=== PATIENT | female | born 1965 | race Caucasian/White ===

== ENCOUNTER 2018-07-10 11:16 | Inpatient (IN) ==
--- NOTE | 2018-07-10 12:29 | ED ---
HPI General Chief Complaint: Psychiatric Symptoms Stated Complaint: Spych Screen Time Seen by Provider: 07/10/18 11:35 Source: patient Mode of arrival: ambulatory Limitations: no limitations History of Present Illness HPI Narrative: 52-year-old female presents to the emergency department voluntarily for psychiatric evaluation. Says she "cannot get bad thoughts out of her head" for many months. Says she wants to end her life. Says "it is not worth it anymore." She reports suicidal ideation. She has thought about stabbing herself in the heart with a knife, crashing her car into a tree and other thoughts. Has history of suicidal attempt by overdosing on pills. Denies homicidal ideation. Denies auditory or visual hallucinations. Denies illicit drug use or alcohol use. Reports taking his Xanax from a friend the other day. Reports tobacco use. States that if she drinks alcohol she "knows she would do it if she was drunk;" referring to committing suicide if she was drunk. Symptoms are aggravated with current life situation of not having any money, cannot get a job, and finding out that her daughter is going to [employer] for 5 years. No known relieving factors. Symptoms are moderate to severe in severity. Onset unknown. Duration chronic. Reports chest pain that has been constant for 1 month. Says it feels like a knife is stuck in her chest. Denies any associated shortness of breath. Denies abdominal pain, nausea, vomiting, change in urine or stool. History of CHF and takes Lasix. Has a primary care provider but does not know the name. Allergies to Compazine and Zoloft. Has no other medical complaints. No other modifying factors or associated signs and symptoms. Related Data Home Medications Medication Instructions Recorded Confirmed Seroquel 25 mg PO HS 07/10/18 07/10/18 clonazepam 1 mg PO BID PRN 07/10/18 07/10/18 methimazole 10 mg PO TID 07/11/18 07/11/18 Previous Rx's Medication Instructions Recorded atorvastatin 20 mg PO DAILY #30 tab 07/13/18 dicyclomine 20 mg PO QID 7 Days #28 tab 07/13/18 lorazepam 1 mg PO BID 7 Days #14 tab 07/13/18 mirtazapine 15 mg PO HS 15 Days #15 tab 07/13/18 Allergies Allergy/AdvReac Type Severity Reaction Status Date / Time sertraline [From Zoloft] Allergy Severe Hives Verified 07/10/18 12:00 prochlorperazine AdvReac Severe Seizures Verified 07/10/18 12:00 [From Compazine] Review of Systems ROS: all other systems reviewed are negative PMFSH History History Provided By: Patient Medical History Medical History Anxiety (Acute) Depression (Acute) CHF (congestive heart failure) (Acute) Chest pain (Acute) Post hysterectomy menopause (Acute) Thyroid disorder (Acute) Surgical History Surgical History History of appendectomy (Acute) Family History Family History Other Diabetes mellitus Social History Social History Substance History: No History of Abuse Second Hand Smoke Exposure: Yes Smoking Status: Current every day smoker Tobacco Type: Cigarettes How Often Do You Have a Drink Containing Alcohol: Never Exam Narrative Exam Narrative: GENERAL: Well-nourished, well-developed female patient , in no acute distress SKIN: Warm and dry. HEAD: Atraumatic. Normocephalic. EYES: Pupils equal and round. ENT: Mucosa pink and moist. NECK: Supple. Trachea midline. CARDIOVASCULAR: Regular rate and rhythm. No murmur appreciated. RESPIRATORY: No accessory muscle use. Clear to auscultation. Breath sounds equal bilaterally. GASTROINTESTINAL: Abdomen soft, non-tender, nondistended. Hepatic and splenic margins not palpable. Bowel sounds are active 4 quadrants. MUSCULOSKELETAL: No obvious deformities. No clubbing. No cyanosis. No edema. NEUROLOGICAL: Awake and alert. Oriented 3. No obvious cranial nerve deficits. Motor grossly within normal limits. Normal speech. Moves all extremities. 5/5 strength to all extremities. PSYCHIATRIC: No delusional thought processes. No hallucinations. Course Initial Documented Vital Signs Temperature 97.8 F 07/10/18 11:19 Pulse Rate 117 H 07/10/18 11:19 Respiratory Rate 20 07/10/18 11:19 Blood Pressure 166/96 H 07/10/18 11:19 Pulse Oximetry 98 07/10/18 11:19 Last Documented Vital Signs Temperature 97.5 F L 07/13/18 06:00 Pulse Rate 79 07/13/18 06:00 Respiratory Rate 16 07/13/18 06:00 Blood Pressure 164/94 H 07/13/18 06:00 Pulse Oximetry 97 07/12/18 17:00 Medical Decision Making NADEGE Attestation NADEGE supervised visit: Yes Attestation: I was present with the advanced practitioner during the management of this patient. I discussed the case with the advanced practitioner and agree with the findings and plan as documented in their note except as noted below. 52yF presenting with depression and suicidal ideation. The patient reports recently losing her job, finding out that her daughter is going to [employer], and is concerned about losing her house. She says that for the past several months she's had severe depression and has not wanted to get out of bed, eat, or interact with anyone. She reports repetitive thoughts about wanting to kill herself by slitting her wrists, stabbing herself in the chest, and driving her car into a tree. She has not recently tried to harm herself but has a history of psych admission for intentional overdose when she was a teenager. Denies homicidal ideation, says that she is not hallucinating but tells me "I think I saw a UFO the other night". Says that she ran out of her clonazepam and thyroid medication 1 week ago. Denies alcohol or drug use. No acute distress NCAT RRR Lungs clear to auscultation bilaterally Abdomen soft and non-tender No lower extremity edema A&Ox3 Cooperative with exam, flattened affect, withdrawn, speech clear/ not pressured or tangential, does not appear to be internally preoccupied A/P: 52yF presenting with depression and suicidal ideation I signed a [place] Act for this patient as I believe she presents significant risk of harming herself Medical clearance (patient has a history of CHF and thyroid disease) Psych eval [facility] Narrative Medical decision making narrative: Patient presents voluntarily. Patient has positive suicidal ideation and multiple plans. I feel the patient is a threat to herself and others and will initiate a [place] act. Physical examination and vital signs are essentially unremarkable. Patient has no medical complaints to report. Psych screen has been ordered. If the laboratory results are unremarkable, the patient will be medically cleared for psychiatric evaluation and disposition. Patient is complaining of chest pain that has been constant for 1 month. No associated shortness of breath. Patient will be moved into a medical bed and placed on a cardiopulmonary monitor. Labs, cardiac enzymes, chest x-ray, EKG ordered. Psych screen ordered. 1417: CBC unremarkable. Urinalysis without signs of infection. Positive for benzodiazepines. Chest x-ray with no acute findings 1527: Troponin less than 0.02. TSH 0.005. Free T4 1.25. Patient medically cleared for psych evaluation. 1541: EKG w/NSR; no ST elevation or depression. Medical Screen Exam Complete: Yes Emergency Medical Condition: Yes Differential Diagnosis Differential Diagnosis: Depression, anxiety, adjustment disorder, chest pain, NV , ACS, medical clearance for psychiatric evaluation Lab Data Result diagrams: 07/10/18 13:35 07/12/18 08:42 Lab Results 07/10/18 07/10/18 07/10/18 Range/Units 13:35 13:35 13:35 WBC 9.8 (4.0-11.0) th/mm3 RBC 4.83 (4.00-5.30) mil/mm3 Hgb 14.5 (11.6-15.3) gm/dL Hct 43.1 (35.0-46.0) % MCV 89.1 (80.0-100.0) fL MCH 30.1 (27.0-34.0) pg MCHC 33.7 (32.0-36.0) % RDW 14.9 (11.6-17.2) % Plt Count 296 (150-450) th/mm3 MPV 8.4 (7.0-11.0) fL Neut % (Auto) 68.9 (16.0-70.0) % Lymph % (Auto) 22.9 (9.0-44.0) % [place] % (Auto) 5.6 (0.0-8.0) % Eos % (Auto) 2.1 (0.0-4.0) % Baso % (Auto) 0.5 (0.0-2.0) % Neut # (Auto) 6.8 (1.8-7.7) th/mm3 Lymph # (Auto) 2.2 (1.0-4.8) th/mm3 [place] # (Auto) 0.6 (0.0-0.9) th/mm3 Eos # (Auto) 0.2 (0.0-0.4) th/mm3 Baso # (Auto) 0.0 (0.0-0.2) th/mm3 WBC Differential . Differential Comment Auto diff final Sodium 140 (136-145) meq/L Potassium 3.9 (3.5-5.1) meq/L Chloride 107 (98-107) meq/L Carbon Dioxide 26.4 (21.0-32.0) meq/L Anion Gap 7 (5-15) meq/L BUN 18 (7-18) mg/dL Creatinine 0.78 (0.50-1.00) mg/dL Estimated GFR 77 L (>89) mL/min Random Glucose 117 H (74-106) mg/dL Hemoglobin A1c (4.3-6.0) % Calcium 8.8 (8.5-10.1) mg/dL Total Bilirubin 0.7 (0.2-1.0) mg/dL AST 12 L (15-37) U/L ALT 19 (10-53) U/L Alkaline Phosphatase 101 (45-117) U/L Troponin I Less than 0.02 L (0.02-0.05) ng/mL Total Protein 7.7 (6.4-8.2) g/dL Albumin 3.6 (3.4-5.0) g/dL Triglycerides (42-150) mg/dL Cholesterol (120-200) mg/dL LDL Cholesterol, Calc (0-99) mg/dL HDL Cholesterol (40.0-60.0) mg/dL Cholesterol/HDL Ratio Ratio TSH Less than 0.005 L (0.358-3.740) uIU/mL Free T4 (0.76-1.46) ng/dL Beta HCG, Qual (0-5) mIU/mL Urine Color (Yellw/Straw) Urine Clarity (Clear) Urine pH (5.0-8.5) Ur Specific [place] (1.002-1.035) Urine Protein (Neg-Trace) mg/dL Urine Glucose (UA) (Negative) mg/dL Urine Ketones (Negative) mg/dL Urine Occult Blood (Negative) Urine Nitrate (Negative) Urine Bilirubin (Negative) Urine Urobilinogen (Less than 2) mg/dL Ur Leukocyte Esterase (Negative) Urine RBC (0-3) /hpf Urine WBC (0-5) /hpf Ur Squamous Epith Cells (0-5) /hpf Urine Mucus (Occasional) /lpf Micro UA Comment Urine Culture Comments Salicylates 1.7 L (2.8-20.0) mg/dL Urine Opiates Screen (Neg) Acetaminophen Less than 2.0 L (10.0-30.0) mcg/mL Ur Barbiturates Screen (Neg) Ur Amphetamines Screen (Neg) U Benzodiazepines Scrn (Neg) Urine Cocaine Screen (Neg) U Cannabinoids Screen (Neg) Serum Alcohol Less than 3 (0-5) mg/dL 07/10/18 07/10/18 07/10/18 Range/Units 13:35 13:40 13:40 WBC (4.0-11.0) th/mm3 RBC (4.00-5.30) mil/mm3 Hgb (11.6-15.3) gm/dL Hct (35.0-46.0) % MCV (80.0-100.0) fL MCH (27.0-34.0) pg MCHC (32.0-36.0) % RDW (11.6-17.2) % Plt Count (150-450) th/mm3 MPV (7.0-11.0) fL Neut % (Auto) (16.0-70.0) % Lymph % (Auto) (9.0-44.0) % [place] % (Auto) (0.0-8.0) % Eos % (Auto) (0.0-4.0) % Baso % (Auto) (0.0-2.0) % Neut # (Auto) (1.8-7.7) th/mm3 Lymph # (Auto) (1.0-4.8) th/mm3 [place] # (Auto) (0.0-0.9) th/mm3 Eos # (Auto) (0.0-0.4) th/mm3 Baso # (Auto) (0.0-0.2) th/mm3 WBC Differential Differential Comment Sodium (136-145) meq/L Potassium (3.5-5.1) meq/L Chloride (98-107) meq/L Carbon Dioxide (21.0-32.0) meq/L Anion Gap (5-15) meq/L BUN (7-18) mg/dL Creatinine (0.50-1.00) mg/dL Estimated GFR (>89) mL/min Random Glucose (74-106) mg/dL Hemoglobin A1c (4.3-6.0) % Calcium (8.5-10.1) mg/dL Total Bilirubin (0.2-1.0) mg/dL AST (15-37) U/L ALT (10-53) U/L Alkaline Phosphatase (45-117) U/L Troponin I (0.02-0.05) ng/mL Total Protein (6.4-8.2) g/dL Albumin (3.4-5.0) g/dL Triglycerides (42-150) mg/dL Cholesterol (120-200) mg/dL LDL Cholesterol, Calc (0-99) mg/dL HDL Cholesterol (40.0-60.0) mg/dL Cholesterol/HDL Ratio Ratio TSH (0.358-3.740) uIU/mL Free T4 1.25 (0.76-1.46) ng/dL Beta HCG, Qual (0-5) mIU/mL Urine Color Yellow (Yellw/Straw) Urine Clarity Hazy H (Clear) Urine pH 5.0 (5.0-8.5) Ur Specific [place] 1.020 (1.002-1.035) Urine Protein Negative (Neg-Trace) mg/dL Urine Glucose (UA) Negative (Negative) mg/dL Urine Ketones Trace H (Negative) mg/dL Urine Occult Blood Negative (Negative) Urine Nitrate Negative (Negative) Urine Bilirubin Negative (Negative) Urine Urobilinogen Less than 2 (Less than 2) mg/dL Ur Leukocyte Esterase Negative (Negative) Urine RBC 1 (0-3) /hpf Urine WBC 1 (0-5) /hpf Ur Squamous Epith Cells 1 (0-5) /hpf Urine Mucus Few H (Occasional) /lpf Micro UA Comment Culture not ind Urine Culture Comments Culture not ind Salicylates (2.8-20.0) mg/dL Urine Opiates Screen Neg (Neg) Acetaminophen (10.0-30.0) mcg/mL Ur Barbiturates Screen Neg (Neg) Ur Amphetamines Screen Neg (Neg) U Benzodiazepines Scrn Pos H (Neg) Urine Cocaine Screen Neg (Neg) U Cannabinoids Screen Neg (Neg) Serum Alcohol (0-5) mg/dL 07/12/18 07/12/18 07/12/18 Range/Units 08:42 08:42 08:42 WBC (4.0-11.0) th/mm3 RBC (4.00-5.30) mil/mm3 Hgb (11.6-15.3) gm/dL Hct (35.0-46.0) % MCV (80.0-100.0) fL MCH (27.0-34.0) pg MCHC (32.0-36.0) % RDW (11.6-17.2) % Plt Count (150-450) th/mm3 MPV (7.0-11.0) fL Neut % (Auto) (16.0-70.0) % Lymph % (Auto) (9.0-44.0) % [place] % (Auto) (0.0-8.0) % Eos % (Auto) (0.0-4.0) % Baso % (Auto) (0.0-2.0) % Neut # (Auto) (1.8-7.7) th/mm3 Lymph # (Auto) (1.0-4.8) th/mm3 [place] # (Auto) (0.0-0.9) th/mm3 Eos # (Auto) (0.0-0.4) th/mm3 Baso # (Auto) (0.0-0.2) th/mm3 WBC Differential Differential Comment Sodium 139 (136-145) meq/L Potassium 3.9 (3.5-5.1) meq/L Chloride 106 (98-107) meq/L Carbon Dioxide 25.3 (21.0-32.0) meq/L Anion Gap 8 (5-15) meq/L BUN 16 (7-18) mg/dL Creatinine 0.83 (0.50-1.00) mg/dL Estimated GFR 72 L (>89) mL/min Random Glucose 154 H (74-106) mg/dL Hemoglobin A1c 5.4 (4.3-6.0) % Calcium 9.0 (8.5-10.1) mg/dL Total Bilirubin (0.2-1.0) mg/dL AST (15-37) U/L ALT (10-53) U/L Alkaline Phosphatase (45-117) U/L Troponin I (0.02-0.05) ng/mL Total Protein (6.4-8.2) g/dL Albumin (3.4-5.0) g/dL Triglycerides 153 H (42-150) mg/dL Cholesterol 207 H (120-200) mg/dL LDL Cholesterol, Calc 134 H (0-99) mg/dL HDL Cholesterol 42.3 (40.0-60.0) mg/dL Cholesterol/HDL Ratio 4.89 Ratio TSH (0.358-3.740) uIU/mL Free T4 (0.76-1.46) ng/dL Beta HCG, Qual 2.7 Cancelled (0-5) mIU/mL Urine Color (Yellw/Straw) Urine Clarity (Clear) Urine pH (5.0-8.5) Ur Specific [place] (1.002-1.035) Urine Protein (Neg-Trace) mg/dL Urine Glucose (UA) (Negative) mg/dL Urine Ketones (Negative) mg/dL Urine Occult Blood (Negative) Urine Nitrate (Negative) Urine Bilirubin (Negative) Urine Urobilinogen (Less than 2) mg/dL Ur Leukocyte Esterase (Negative) Urine RBC (0-3) /hpf Urine WBC (0-5) /hpf Ur Squamous Epith Cells (0-5) /hpf Urine Mucus (Occasional) /lpf Micro UA Comment Urine Culture Comments Salicylates (2.8-20.0) mg/dL Urine Opiates Screen (Neg) Acetaminophen (10.0-30.0) mcg/mL Ur Barbiturates Screen (Neg) Ur Amphetamines Screen (Neg) U Benzodiazepines Scrn (Neg) Urine Cocaine Screen (Neg) U Cannabinoids Screen (Neg) Serum Alcohol (0-5) mg/dL Imaging Data Radiologist's impression: Chest X-Ray 07/10/18 12:11 CONCLUSION: No acute cardiopulmonary abnormality is identified. Abdomen/Pelvis CT 07/12/18 00:00 CONCLUSION: 1. No acute CT abnormality in the abdomen or pelvis. 2. Diastasis recti with very small fat-containing periumbilical hernia. 3. Subcentimeter bilateral hypodense cystic renal lesions which are too small to fully characterize. ECG Data Attestation: I personally reviewed and interpreted this ECG as follows: Interpretation: Rate: 95 BPM Rhythm: Sinus [place]: Normal Intervals: Normal intervals, no blocks, QTc 400 ms Q waves: None T waves: Upright, no inversions ST segments: No elevations or depressions Impression: Non-specific EKG, no previous EKG available for comparison. Discharge Plan Discharge Disposition Patient Disposition: 30 Still Patient Discharge Condition Condition: Fair Discharge Order Discharge Orders: Discharge Order (Routine); Ordered 07/13/18 Ordered By: Tony Almgauer Discharge Details Anticipated Discharge Date: 07/13/18 Physicians Team ED Provider: Jessica Smith ED Midlevel Provider: Hazel King Primary Care Provider: UNKNOWN, Attending Provider: Tony Almaguer Other Providers: Tony Almaguer ; Utilizer,[facility] ; Sedrick Diez Status ED Status: Left Department Discharge Information Discharge Date/Time: 07/11/18 14:42
--- NOTE | 2018-07-10 12:57 | XR ---
EXAM DATE: 07/10/2018 12:36 PM EDT AGE/SEX: 52 years / Female INDICATIONS: Midline chest pain. CLINICAL DATA: This is the patient's initial encounter. Patient reports that signs and symptoms have been present for 2 months and indicates a pain score of 4/10. MEDICAL/SURGICAL HISTORY: Congestive heart failure. None. COMPARISON: No prior exams available for comparison. FINDINGS: Portable AP view of the chest demonstrates a normal-sized cardiac silhouette. No effusion, consolidat ion, or pneumothorax is identified. The bones and soft tissues demonstrate no acute finding. Lungs ar e underinflated. CONCLUSION: No acute cardiopulmonary abnormality is identified. Electronically signed by: Tommie Stallings MD 07/10/2018 12:56 PM EDT
[2018-07-10 13:52] LABS: Baso % (Auto) 0.5 % (0.0-2.0); Eos # (Auto) 0.2 th/mm3 (0.0-0.4); Eos % (Auto) 2.1 % (0.0-4.0); Hematocrit 43.1 % (35.0-46.0); Hemoglobin 14.5 gm/dL (11.6-15.3); Lymph # (Auto) 2.2 th/mm3 (1.0-4.8); Lymph % (Auto) 22.9 % (9.0-44.0); Mean Corpuscular HGB Conc 33.7 % (32.0-36.0); Mean Corpuscular Hemoglobin 30.1 pg (27.0-34.0); Mean Corpuscular Volume 89.1 fL (80.0-100.0); Mean Platelet Volume 8.4 fL (7.0-11.0); Mono # (Auto) 0.6 th/mm3 (0.0-0.9); Mono % (Auto) 5.6 % (0.0-8.0); Neut # (Auto) 6.8 th/mm3 (1.8-7.7); Neut % (Auto) 68.9 % (16.0-70.0); Platelet Count 296 th/mm3 (150-450); Red Blood Count 4.83 mil/mm3 (4.00-5.30); Red Cell Distribution Width 14.9 % (11.6-17.2); White Blood Count 9.8 th/mm3 (4.0-11.0)
[2018-07-10 13:56] LABS: Bilirubin,Urine Negative (Negative); Clarity,Urine Hazy (Clear); Color,Urine Yellow (Yellw/Straw); Glucose,Urine (UA) Negative (Negative); Leukocyte Esterase,Urine Negative (Negative); Mucus,Urine Few /lpf (Occasional); Nitrite,Urine Negative (Negative); Squamous Epithelial Cell,Urine 1 /hpf (0-5)
[2018-07-10 14:00] LABS: Amphetamine Screen,Urine Neg (Neg); Barbiturate Screen,Urine Neg (Neg); Cannabinoid Screen,Urine Neg (Neg); Cocaine Screen,Urine Neg (Neg)
[2018-07-10 14:01] LABS: Opiate Screen,Urine Neg (Neg)
[2018-07-10 14:15] LABS: Alanine Aminotransferase 19 U/L (10-53); Albumin 3.6 g/dL (3.4-5.0); Anion Gap 7 meq/L (5-15); Aspartate Aminotransferase 12 U/L (15-37); Blood Urea Nitrogen 18 mg/dL (7-18); Calcium 8.8 mg/dL (8.5-10.1); Carbon Dioxide 26.4 meq/L (21.0-32.0); Chloride 107 meq/L (98-107); Glomerular Filtration Rate 77 mL/min (>89); Glucose,Random 117 mg/dL (74-106); Potassium 3.9 meq/L (3.5-5.1); Sodium 140 meq/L (136-145)
[2018-07-10 14:25] LABS: Alkaline Phosphatase 101 U/L (45-117); Total Protein 7.7 g/dL (6.4-8.2)
[2018-07-10] MEDS ORDERED: LORazepam 1 MG Tablet PO ONE (17:03)
[2018-07-10] MEDS ORDERED: QUEtiapine 25 MG Tablet PO ONE (21:00)
[2018-07-10] MEDS ORDERED: clonazePAM 1 MG Tablet PO ONE (21:00)
[2018-07-11] MEDS ORDERED: Aluminum/Magnesium/Simethacone Susp 30 ML UDC PO PRN (08:26)
[2018-07-11] MEDS ORDERED: Bisacodyl 10 MG Supp RECTAL PRN (08:26)
[2018-07-11] MEDS ORDERED: clonazePAM 0.5 MG Tablet PO PRN (09:00)
[2018-07-11] MEDS: Senna/Docusate Sodium 8.6/50 MG Tablet PO SCH ×3 (09:06→21:06)
--- NOTE | 2018-07-11 13:54 | P.HPPSY ---
Provisional Diagnosis Admission Date: July 11, 2018 09:58 [place] I.: Adjustment disorder with depressed mood, R/O major depressive disorder, single episode, without psychosis, history of anxiety [place] II.: Cluster B traits Competence Certification of Person's Competence To Provide Express and Informed Consent I have personally examined Mary Sharp, a person being served at [facility] on, July 11, 2018 1340. Express and informed consent means consent voluntarily given in writing, by a competent person, after sufficient explanation and disclosure of the subject matter involved to enable the person to make a knowing and willful decision without any element of force, fraud, deceit, duress, or other form of constraint or coercion. This person is 18 years of age or older, is not now known to be incompetent to consent to treatment with a guardian advocate, and does not have a health care surrogate or proxy currently making medical treatment decisions. I have found this person to be one of the following: [] Competent to provide express and informed consent, as defined above, for voluntary admission to this facility and is competent to provide express and informed consent for treatment. He/she has the consistent capacity to make well reasoned, willful, and knowing decisions concerning his or her medical or mental health treatment. The person fully and consistently understands the purpose of the admission for examination/placement and is fully capable of personally exercising all rights assured [place] [] Incompetent to provide express and informed consent to voluntary admission, and this is incompetent to provide express and informed consent to treatment. The person must be transferred to involuntary status and a petition for a guardian advocate filed with the Circuit Court. [] Refusing to provide express and informed consent to voluntary admission but is competent to provide express and informed consent for treatment. The person must be discharged or transferred to involuntary status. Form shall be completed within 24 hours of a person's arrival at the receiving facility and filed in the clinical record of each person: 1. Admitted on a voluntary basis 2. Permitted to provide express and informed consent to his/her own treatment 3. Allowed to transfer from involuntary to voluntary status 4. Prior to permitting a person to consent to his or her own treatment after having been previously found incompetent to consent to treatment. History of Present Illness Capacity: Has capacity History of Present Illness: The patient is 52-year-old woman, , domiciled with her daughter in [facility], unemployed at the moment, with a psychiatric history of anxiety and depression, 1 remote psychiatric admission, a suicidal attempt, she is on quetiapine 25 mg twice daily, clonazepam 1 mg twice daily, prescribed by PCP, medical history hypothyroidism, who presents to the emergency department voluntarily for psychiatric evaluation, even though the patient was posteriorly [place] acted by ER physician due to suicidal ideation. Says she "cannot get bad thoughts out of her head" for many months. Says she wants to end her life. Says "it is not worth it anymore." She reports suicidal ideation, no specific plan, even though she says that she wants to get treatment for this. She has thought about stabbing herself in the heart with a knife, crashing her car into a tree and other thoughts. States that if she drinks alcohol she "knows she would do it if she was drunk;" referring to committing suicide if she was drunk. Symptoms are aggravated with current life situation of not having any money, cannot get a job, and finding out that her daughter is going to senior living for 5 years. She also reports that she has a son who is a heroine addict in [place]. She states that she is going to lose the best friend who is her daughter. The patient has initially stated to the nurses that she was positive for benzodiazepines because she was taking Xanax from her daughter, even though to me she tells me that the reason she is positive for benzodiazepine is because she is taking clonazepam prescribed by PCP. During the evaluation the patient seems to be quite tearful, vulnerable, to be quite mood is regulated. He denies the use of illegal drugs, occasional alcohol PPHx:psychiatric history of anxiety and depression, 1 remote psychiatric admission, a suicidal attempt, she is on quetiapine 25 mg twice daily, clonazepam 1 mg twice daily PMHx: Hypothyroidism Family Hx: She denies family psychiatric he substance Hx: She denies illegal drugs, alcohol occasionally Social Hx: Patient was born and raised in [place], she has recently moved month ago [facility] from [place], she is , has 3 kids, she lives with her daughter, unemployed. - Inpatient Certification I certify that the inpatient services were ordered in accordance with Medicare regulations governing the order. This includes certification that hospital inpatient services are reasonable and necessary and in the case of services not specified as inpatient-only under 42 CFR 419.22(n), that they are appropriately provided as inpatient services in accordance to with the 2-midnight benchmark under 43 CFR 412.3(e) I certify that inpatient psychiatric hospital services are medically necessary. Evaluation and treatment and/or diagnostic testing are expected to improve the patient's condition. The patient needs on a daily basis, active treatment furnished directly by or requiring the supervision of inpatient psychiatric facility personnel. Estimated Total Length of Stay (Days): 7 Plans for Post Hospital Care: Home Review of Systems Constitutional: Denies anorexia, Denies body ache(s), Denies chills, Denies daytime sleepiness, Denies excessive sweating, Denies fatigue, Denies fever(s), Denies headache(s), Denies increased appetite, Denies lack of energy, Denies malaise, Denies night sweats, Denies weakness, Denies weight gain, Denies weight loss, Denies other Eyes: Denies blind spots, Denies blurry vision, Denies bulging eyes, Denies change in vision, Denies double vision, Denies discharge, Denies dry eyes, Denies floaters, Denies irritation, Denies itchy eyes, Denies loss of vision, Denies pain, Denies requires corrective lenses, Denies sensitivity to light, Denies other Ears, Nose, Mouth, and Throat: Denies abnormal hearing, Denies bleeding gums, Denies bad breath, Denies change in voice, Denies dental pain, Denies difficulty swallowing, Denies dizziness, Denies dry mouth, Denies ear discharge , Denies ear pain, Denies facial pain, Denies headache(s), Denies hearing loss, Denies hoarseness, Denies lip swelling, Denies nosebleed, Denies mouth lesions, Denies mouth pain, Denies nasal congestion, Denies nasal discharge, Denies nasal obstruction, Denies nasal trauma, Denies neck lump, Denies neck pain, Denies nose pain, Denies pain with swallowing, Denies poor balance, Denies post nasal drip, Denies ringing in the ears, Denies sinus pain, Denies sinus pressure , Denies sore throat, Denies throat swelling, Denies tongue swelling, Denies other Cardiovascular: Denies chest pain, Denies chest pain at rest, Denies chest pain with activity, Denies excessive sweating, Denies fainting, Denies fast heart rate, Denies foot swelling, Denies generalized swelling, Denies irregular heart rhythm, Denies leg pain with activity, Denies leg sores, Denies leg swelling, Denies lightheadedness, Denies radiating jaw, neck or arm pain, Denies rapid, pounding, or irregular heartbeat, Denies shortness of breath, Denies shortness of breath with activity, Denies shortness of breath when lying down, Denies shortness of breath causing sudden awakening, Denies slow heart rate, Denies other Respiratory: Denies change in phlegm color, Denies chest congestion, Denies cough, Denies coughing up blood, Denies excessive phlegm production, Denies pain on inspiration, Denies pain with cough, Denies shortness of breath, Denies shortness of breath with activity, Denies snoring, Denies stridor, Denies wheezing, Denies other Gastrointestinal: Denies abdominal pain, Denies belching, Denies black, tarry stools, Denies bloating, Denies bright, red blood in stools, Denies change in bowel habits, Denies constant urge to pass stool, Denies change in stools, Denies coffee ground vomit, Denies constipation, Denies cramping, Denies difficulty swallowing, Denies excessive passing of gas, Denies feeling full early, Denies heartburn, Denies incontinent of stools, Denies loose stools, Denies nausea, Denies pain with swallowing, Denies vomiting, Denies vomiting blood, Denies other Genitourinary: Denies abnormal periods, Denies abnormal vaginal bleeding, Denies absent period, Denies bleeding between periods, Denies blood in urine, Denies difficulty starting urination, Denies difficulty urinating, Denies dribbling after urination, Denies frequent nighttime urination, Denies genital itching, Denies genital lesions, Denies heavy periods, Denies hot flashes, Denies light periods, Denies nipple discharge, Denies painful intercourse, Denies painful periods, Denies painful urination, Denies pelvic pain, Denies prolapse symptoms, Denies sexual problems, Denies side pain, Denies urinary incontinence, Denies urinary urgency, Denies vaginal discharge, Denies vaginal dryness, Denies vaginal odor, Denies vaginal itching, Denies other Musculoskeletal: Denies abnormal walking, Denies back pain, Denies body aches, Denies decreased muscle mass, Denies deformity, Denies joint pain, Denies joint swelling, Denies limited joint movement, Denies loss of height, Denies muscle cramps, Denies muscle weakness, Denies neck pain, Denies numbness, Denies radiating pain into limb, Denies stiffness, Denies tingling, Denies other Skin/Breast: Denies acne, Denies bleeding lesions, Denies boil, Denies breast swelling, Denies breast skin changes, Denies breast pain, Denies breast lump, Denies change in breast shape, Denies change in hair, Denies change in skin color, Denies changing lesions, Denies dry skin, Denies excessive hair growth, Denies hair loss, Denies itching, Denies lesions, Denies nail changes, Denies new lesions, Denies nipple discharge, Denies non-healing lesions, Denies redness , Denies sensitivity to light, Denies rash, Denies skin pain, Denies skin ulcer , Denies sores, Denies stretch dunn, Denies unusual bruising, Denies wounds, Denies yellowing of the skin, Denies other Neurologic: Denies abnormal hearing, Denies abnormal movements, Denies abnormal speech, Denies abnormal walking, Denies behavioral changes, Denies burning sensations, Denies confusion, Denies dizziness, Denies fainting, Denies frequent falls, Denies headache(s), Denies lack of coordination, Denies localized weakness, Denies loss of vision, Denies memory loss, Denies numbness, Denies other visual disturbances, Denies radiating pain, Denies restless legs, Denies convulsions, Denies seizure-like activity, Denies sensory deficit, Denies tingling, Denies tingling/numbness/burning sensations, Denies tremor(s), Denies unsteadiness, Denies weakness, Denies other Psychiatric: Reports depression, Reports hopelessness, Reports lack of enjoyment , Reports thoughts of hurting/killing yourself PMFSH - History History Provided By: Patient - Medical History Medical History: Medical History (Last Updated 07/10/18 @ 12:32 by Jose Tejeda RN) CHF (congestive heart failure) Chest pain Depression Hypothyroidism - Tobacco History Second Hand Smoke Exposure: No Tobacco Use In Past 30 Days: Yes Smoking Status: Current every day smoker Tobacco Type: Cigarettes - Alcohol History How Often Do You Have a Drink Containing Alcohol: Never - Substance Use History Substance History: No History of Abuse - Immunization History Tetanus Immunization: Unsure Hx Influenza Vaccine This Season: No Medications and Allergies Active Medications: Active Medications Acetaminophen (Tylenol) 650 mg PO Q4H PRN PRN Reason: Pain 1-5 or Temp >101F Al Hydrox/Mg Hydrox/Simethicone (Mag-Al Plus Susp Liq) 30 ml PO Q6H PRN PRN Reason: DYSPEPSIA Al Hydroxide/Mg Hydroxide (Milk Of Magnesia Liq) 30 ml PO Q12H PRN PRN Reason: Mild Constipation Bisacodyl (Dulcolax Supp) 10 mg RECTAL DAILY PRN PRN Reason: SEVERE CONSITIPATION Clonazepam (Klonopin) 0.5 mg PO BID PRN PRN Reason: ANXIETY Last Admin: 07/11/18 09:08 Dose: 0.5 mg Diphenhydramine HCl (Benadryl) 50 mg PO Q6H PRN PRN Reason: For mild anxiety and/or EPS Lactulose (Lactulose Liq) 30 ml PO DAILY PRN PRN Reason: SEVERE CONSITIPATION Nicotine (Habitrol 14 Mg Patch.24 Hr) 1 patch T-DERMAL DAILY [facility] Last Admin: 07/11/18 09:06 Dose: 1 patch Patch Removal (Remove Old Patch) 1 each T-DERMAL DAILY [facility] Quetiapine Fumarate (Seroquel) 25 mg PO [facility] Senna/Docusate Sodium (Jerilyn-Colace) 1 tab PO BID [facility] Last Admin: 07/11/18 09:06 Dose: Not Given Sennosides (Senokot) 17.2 mg PO Q12H PRN PRN Reason: Moderate Constipation Allergies Allergy/AdvReac Type Severity Reaction Status Date / Time sertraline [From Zoloft] Allergy Severe Hives Verified 07/10/18 12:00 prochlorperazine AdvReac Severe Seizures Verified 07/10/18 12:00 [From Compazine] Home Medications Medication Instructions Recorded Confirmed Type Seroquel 25 mg PO 07/10/18 07/10/18 History clonazepam 1 mg PO BID PRN 07/10/18 07/10/18 History Results - Labs CBC & Chem 7: 07/10/18 13:35 07/10/18 13:35 Labs: Laboratory Results - last 24 hr 07/10/18 07/10/18 07/10/18 13:35 13:35 13:35 WBC 9.8 RBC 4.83 Hgb 14.5 Hct 43.1 MCV 89.1 MCH 30.1 MCHC 33.7 RDW 14.9 Plt Count 296 MPV 8.4 Neut % (Auto) 68.9 Lymph % (Auto) 22.9 [place] % (Auto) 5.6 Eos % (Auto) 2.1 Baso % (Auto) 0.5 Neut # (Auto) 6.8 Lymph # (Auto) 2.2 [place] # (Auto) 0.6 Eos # (Auto) 0.2 Baso # (Auto) 0.0 WBC Differential . Differential Comment Auto diff final Sodium 140 Potassium 3.9 Chloride 107 Carbon Dioxide 26.4 Anion Gap 7 BUN 18 Creatinine 0.78 Estimated GFR 77 L Random Glucose 117 H Calcium 8.8 Total Bilirubin 0.7 AST 12 L ALT 19 Alkaline Phosphatase 101 Troponin I Less than 0.02 L Total Protein 7.7 Albumin 3.6 TSH Less than 0.005 L Free T4 Urine Color Urine Clarity Urine pH Ur Specific [place] Urine Protein Urine Glucose (UA) Urine Ketones Urine Occult Blood Urine Nitrate Urine Bilirubin Urine Urobilinogen Ur Leukocyte Esterase Urine RBC Urine WBC Ur Squamous Epith Cells Urine Mucus Micro UA Comment Urine Culture Comments Salicylates 1.7 L Urine Opiates Screen Acetaminophen Less than 2.0 L Ur Barbiturates Screen Ur Amphetamines Screen U Benzodiazepines Scrn Urine Cocaine Screen U Cannabinoids Screen Serum Alcohol Less than 3 07/10/18 07/10/18 07/10/18 13:35 13:40 13:40 WBC RBC Hgb Hct MCV MCH MCHC RDW Plt Count MPV Neut % (Auto) Lymph % (Auto) [place] % (Auto) Eos % (Auto) Baso % (Auto) Neut # (Auto) Lymph # (Auto) [place] # (Auto) Eos # (Auto) Baso # (Auto) WBC Differential Differential Comment Sodium Potassium Chloride Carbon Dioxide Anion Gap BUN Creatinine Estimated GFR Random Glucose Calcium Total Bilirubin AST ALT Alkaline Phosphatase Troponin I Total Protein Albumin TSH Free T4 1.25 Urine Color Yellow Urine Clarity Hazy H Urine pH 5.0 Ur Specific [place] 1.020 Urine Protein Negative Urine Glucose (UA) Negative Urine Ketones Trace H Urine Occult Blood Negative Urine Nitrate Negative Urine Bilirubin Negative Urine Urobilinogen Less than 2 Ur Leukocyte Esterase Negative Urine RBC 1 Urine WBC 1 Ur Squamous Epith Cells 1 Urine Mucus Few H Micro UA Comment Culture not ind Urine Culture Comments Culture not ind Salicylates Urine Opiates Screen Neg Acetaminophen Ur Barbiturates Screen Neg Ur Amphetamines Screen Neg U Benzodiazepines Scrn Pos H Urine Cocaine Screen Neg U Cannabinoids Screen Neg Serum Alcohol Exam Vital signs: Vital Signs 07/10/18 18:04 07/11/18 05:54 Temperature 98.7 F 98.1 F Pulse Rate 87 81 Respiratory Rate 18 Blood Pressure 144/71 H 153/73 H Pulse Oximetry 97 100 Intake & Output 07/10/18 07/11/18 07/11/18 18:59 06:59 18:59 Weight 95.254 kg - Constitutional no acute distress - Routine HEENT Exam Head: Present: normocephalic Eye: Present: EOMI ENT: Present: mucous membranes moist Mental Status Examination Appearance: Appropriate Consciousness: Alert Orientation: x4 Motor Activity: Normal gait Speech: Unremarkable Language: Adequate Fund of Knowledge: Adequate Attention and Concentration: Adequate Memory: Unremarkable Mood: Sad Affect: Sad Thought Process & Associations: Intact Thought Content: Appropriate Hallucination Type: None Delusion Type: None Suicidal Ideation: No Suicidal Plan: No Suicidal Intention: No Homicidal Ideation: No Homicidal Plan: No Homicidal Intention: No Insight: Fair Judgment: Impulsive Assessment and Plan - Assessment (1) Acute adjustment disorder with depressed mood Code(s): F43.21 - Adjustment disorder with depressed mood Status: Acute - Plan Plan: Estimated LOS: [] days On psychiatric evaluation today the patient presents with symptoms of depression and suicidal ideation for the last month, the patient has walked into the ER asking for help due to persistent suicidal ideation in the context of multiple psychosocial stressors. The patient reports that in the last months she has been having persistent suicidal ideation with a plan of stabbing herself or overdosing, at the same time the patient reports anhedonia, helplessness, hopelessness, generalized pessimism, lack of sleep and appetite. She has a psychiatric history of depression, anxiety, psychiatric hospitalizations in the past, suicidal attempts, and for this reason at this moment given her presentation she has an elevated risk of danger to self, she need psychiatric admission for stabilization and safety. I will start Celexa 10 mg for depression, clonazepam 0.5 mg twice daily and also Seroquel 25 mg twice daily, as the patient was taking. Breath supportive psychotherapy provided. Transfer the patient to 2600 unit Justification for Continued Inpatient Stay: Patient is for psychiatry admission
--- NOTE | 2018-07-11 17:06 | ECG ---
Date Performed: 07/10/2018 Time Performed: 15:38:17 PTAGE: 52 years EKG: Sinus rhythm NORMAL ECG NO PREVIOUS TRACING DOCTOR: Tyler Diaz Interpretating Date/Time 07/11/2018 17:05:22
[2018-07-11] MEDS ORDERED: QUEtiapine 25 MG Tablet PO SCH (21:00)
[2018-07-11] MEDS ORDERED: Haloperidol Inj 5 MG/ML Ampul IV.PUSH PRN (21:50)
[2018-07-11] MEDS: LORazepam 1 MG Tablet PO PRN (22:00)
[2018-07-12] MEDS: Acetaminophen 325 MG Tablet PO PRN (06:23)
[2018-07-12] MEDS: LORazepam 1 MG Tablet PO PRN (06:26)
[2018-07-12] MEDS: Senna/Docusate Sodium 8.6/50 MG Tablet PO SCH (09:42)
--- NOTE | 2018-07-12 09:43 | P.CONPSY ---
Provisional Diagnosis Admission Date: July 11, 2018 09:58 [place] I.: 1. Adjustment disorder with depressed mood Rule out major depressive episode 2. History of anxiety [place] II.: 1. Some cluster B personality traits History of Present Illness Service: Psychiatry Consult date: 07/12/18 Requesting Physician: Nicolas Tucker Reason for Consult: Second opinion for involuntary psychiatric hospitalization Primary Care Provider: UNKNOWN History of Present Illness: Ms. Sharp is a 52-year-old female with a reported history of depression and anxiety who presented to the ED voluntarily for psychiatric evaluation. She endorsed suicidal ideation to the ED provider and was placed under the [facility] act. She was seen by Dr. Tucker for an H&P. Reviewing the electronic medical record, I see no previous psychiatric contact within our system. Patient seen and examined with nurse. Chart reviewed. Case discussed with nursing staff. No behavioral issues noted overnight. On my examination today, the patient reports several psychosocial stressors including critical illness and father, unemployment and daughter having legal problems that may result in significant period of incarceration for daughter. Patient tells me that in the setting of these stressors she has become increasingly depressed and "I was just feeling hopeless. I feel like a failure as a mother." She admits to entertaining suicidal thoughts prior to coming into the hospital. She articulates a belief that she has completed her life tasks of employment and raising a family and so felt that she had no ongoing reason to live. She denies any suicidal ideation, intent or plan presently. Mood remains depressed. I can elicit no hypomanic or manic symptoms presently, nor does the patient have a history of same. She denies any audiovisual hallucinations. I can elicit no delusional beliefs. She does exhibit some cluster B personality traits. Remainder of the psychiatric ROS is negative. The patient complains of abdominal spasms in left upper quadrant, subacute/chronic. Otherwise no physical complaints. Past psychiatric history: The patient reports a history of depression and anxiety. She reports that she went to a free clinic for psychiatric care when she was residing in [facility] but is not connected in this area. Patient denies any history of psychiatric admissions. She denies any history of suicide attempts. She denies any history of nonsuicidal self-injurious behavior. She denies any history of violence. Family history: Patient denies a family history of mental illness or suicide. She reports that both her father and son have substance use issues, alcohol and heroin respectively. Chemical dependency history: The patient denies any abuse of drugs or alcohol. Social history: The patient was raised in a family and moved around a lot. She left the [place] area and was residing in [facility] before moving up to [facility], where she now lives with her daughter. Unfortunately, her daughter has fallen into some legal trouble, and the patient is fearful of becoming homeless. She notes that her son has severe substance use issues and resides in [place], and she is fearful that she will receive a call that he has by overdose. She is high school educated. She recently lost her job. She is . She denies any history. Denies any legal history. No reported access to guns or firearms. She is of the [employer]. Past medical history: Includes a history of hyperthyroidism on methimazole, CHF and seasonal allergies. Medications: Methimazole 10 mg daily, Seroquel 25 mg at bedtime and Klonopin 1 mg twice daily. These medications were confirmed by nurse with pharmacy. I also reviewed [facility] report, although I see no history of controlled substance prescribing for the patient in the database. Review of Systems All other systems reviewed negative except as stated in HPI [facility] - History History Provided By: Patient - Medical History Medical History: Medical History (Last Reviewed 07/11/18 @ 15:57 by Gianna Dominguez RN) Post hysterectomy menopause (Acute) Anxiety CHF (congestive heart failure) Chest pain Depression Hypothyroidism - Surgical History Surgical History: Surgical History (Last Reviewed 07/11/18 @ 15:57 by Gianna Dominguez RN) History of appendectomy - Tobacco History Second Hand Smoke Exposure: Yes Tobacco Use In Past 30 Days: Yes Smoking Status: Current every day smoker Tobacco Type: Cigarettes - Alcohol History How Often Do You Have a Drink Containing Alcohol: Never - Substance Use History Substance History: No History of Abuse - Immunization History Tetanus Immunization: >5 Years Hx Influenza Vaccine This Season: Yes Medications and Allergies Active Medications: Active Medications Acetaminophen (Tylenol) 650 mg PO Q4H PRN PRN Reason: Pain 1-5 or Temp >101F Last Admin: 07/12/18 06:23 Dose: 650 mg Al Hydrox/Mg Hydrox/Simethicone (Mag-Al Plus Susp Liq) 30 ml PO Q6H PRN PRN Reason: DYSPEPSIA Al Hydroxide/Mg Hydroxide (Milk Of Magnesia Liq) 30 ml PO Q12H PRN PRN Reason: Mild Constipation Bisacodyl (Dulcolax Supp) 10 mg RECTAL DAILY PRN PRN Reason: SEVERE CONSITIPATION Clonazepam (Klonopin) 0.5 mg PO BID PRN PRN Reason: ANXIETY Last Admin: 07/11/18 09:08 Dose: 0.5 mg Diphenhydramine HCl (Benadryl) 50 mg PO Q6H PRN PRN Reason: For mild anxiety and/or EPS Flumazenil (Romazecon Inj) 0.2 mg IV.PUSH Q1M PRN PRN Reason: OVERSEDATION Lactulose (Lactulose Liq) 30 ml PO DAILY PRN PRN Reason: SEVERE CONSITIPATION Lorazepam (Ativan) 1 mg PO Q4H PRN PRN Reason: for CIWA 8-10 Last Admin: 07/12/18 06:26 Dose: 1 mg Lorazepam (Ativan) 2 mg PO Q2H PRN PRN Reason: for CIWA 11-14 Lorazepam (Ativan Inj) 2 mg IV.PUSH Q2H PRN PRN Reason: for CIWA 11-14 Lorazepam (Ativan Inj) 2 mg IV.PUSH Q1H PRN PRN Reason: for CIWA 15-20 Lorazepam (Ativan Inj) 1 mg IV.PUSH Q4H PRN PRN Reason: for CIWA 8-10 Lorazepam (Ativan Inj) 2 mg IV.PUSH Q15M PRN PRN Reason: for CIWA > 20 Nicotine (Habitrol 14 Mg Patch.24 Hr) 1 patch T-DERMAL DAILY [facility] Last Admin: 07/12/18 09:42 Dose: Not Given Patch Removal (Remove Old Patch) 1 each T-DERMAL DAILY [facility] Last Admin: 07/12/18 09:42 Dose: Not Given Quetiapine Fumarate (Seroquel) 25 mg PO HS [facility] Senna/Docusate Sodium (Jerilyn-Colace) 1 tab PO BID [facility] Last Admin: 07/12/18 09:42 Dose: Not Given Sennosides (Senokot) 17.2 mg PO Q12H PRN PRN Reason: Moderate Constipation Allergies Allergy/AdvReac Type Severity Reaction Status Date / Time sertraline [From Zoloft] Allergy Severe Hives Verified 07/10/18 12:00 prochlorperazine AdvReac Severe Seizures Verified 07/10/18 12:00 [From Compazine] Home Medications Medication Instructions Recorded Confirmed Type Seroquel 25 mg PO HS 07/10/18 07/10/18 History clonazepam 1 mg PO BID PRN 07/10/18 07/10/18 History methimazole 10 mg PO TID 07/11/18 07/11/18 History Exam Vital signs: Vital Signs 07/11/18 13:56 07/11/18 14:20 07/11/18 17:00 Temperature 98.6 F 98.4 F 98.1 F Pulse Rate 97 H 100 H 88 Respiratory Rate 16 18 Blood Pressure 166/67 H 144/70 H 140/72 Pulse Oximetry 99 98 07/12/18 05:42 Temperature 97.9 F Pulse Rate 80 Respiratory Rate Blood Pressure 134/70 Pulse Oximetry 95 Intake & Output 07/11/18 07/12/18 07/12/18 18:59 06:59 18:59 Weight 98.3 kg Other: Weight On Admission 98.3 kg Narrative: Physical examination completed by ED provider. On my examination today, the patient appears to be in no acute physical distress. No motor abnormalities noted. No signs of intoxication or withdrawal noted. Labs and vital signs reviewed: Laboratory Tests 07/10/18 07/10/18 07/10/18 13:35 13:35 13:35 WBC 9.8 Hgb 14.5 Plt Count 296 Sodium 140 Potassium 3.9 Chloride 107 Carbon Dioxide 26.4 BUN 18 Creatinine 0.78 Estimated GFR 77 L AST 12 L ALT 19 Alkaline Phosphatase 101 Troponin I Less than 0.02 L TSH Less than 0.005 L Free T4 1.25 U Benzodiazepines Scrn Serum Alcohol Less than 3 07/10/18 13:40 WBC Hgb Plt Count Sodium Potassium Chloride Carbon Dioxide BUN Creatinine Estimated GFR AST ALT Alkaline Phosphatase Troponin I TSH Free T4 U Benzodiazepines Scrn Pos H Serum Alcohol Urinalysis results reviewed. Impressions Chest X-Ray 07/10/18 12:11 CONCLUSION: No acute cardiopulmonary abnormality is identified. EKG read as normal sinus rhythm. QTc within normal limits. Mental Status Examination Appearance: Appropriate Consciousness: Alert Orientation: x4 Motor Activity: Normal gait Speech: Unremarkable Language: Adequate Fund of Knowledge: Adequate Attention and Concentration: Adequate Memory: Unremarkable Mood: Sad Affect: Appropriate Thought Process & Associations: Intact, Logical, Linear Thought Content: Appropriate Hallucination Type: None Delusion Type: None Suicidal Ideation: No (Unclear whether patient is reliable to contract for safety) Suicidal Plan: No Suicidal Intention: No Homicidal Ideation: No Homicidal Plan: No Homicidal Intention: No Insight: Fair Judgment: Impulsive Assessment and Plan - Assessment (1) Acute adjustment disorder with depressed mood Code(s): F43.21 - Adjustment disorder with depressed mood Status: Acute - Plan Plan: Patient is agreeable to remaining on the inpatient psychiatric unit for observation and stabilization on a voluntary basis. I magistrate judge that she is capacitated to do so. Patient does not meet criteria for involuntary psychiatric hospitalization. Voluntary status. Lengthy discussion with patient regarding conditions of voluntary status including right of release. Patient found Ativan she was given last night more helpful than the Klonopin that she had reportedly been previously prescribed. She would like to switch from Klonopin to Ativan. Discontinue Klonopin and initiate Ativan 1 mg twice daily. [facility] report reviewed. Discontinue Seroquel and replaced with Remeron 15 mg at bedtime in hopes that this will help with both mood and sleep. Resume methimazole. R/B/A for medication changes discussed with patient. Beta hCG. Hospitalist consult regarding patient's physical complaints. Vitals every shift. Counselor to see. Disposition planning. Estimated length of stay : 3-5 days. Justification for Continued Inpatient Stay: Medication changes. Monitoring for impairment in safety. Risk for decompensation in less restrictive environment. Discharge Planning: Pending stabilization Request Healthcare Surrogate/Guardian Advocate?: No
[2018-07-12 10:50] LABS: Carbon Dioxide 25.3 meq/L (21.0-32.0); Potassium 3.9 meq/L (3.5-5.1)
[2018-07-12 10:56] LABS: Chol/HDL Ratio 4.89 Ratio; HDL Cholesterol 42.3 mg/dL (40.0-60.0)
[2018-07-12] MEDS: LORazepam 1 MG Tablet PO SCH ×2 (11:09→20:23)
[2018-07-12] MEDS ORDERED: Diatrizoate Meglum/Diatrizoate Sod Liq 9 ML UDC PO ONE (12:30)
--- NOTE | 2018-07-12 15:15 | P.CON ---
History of Present Illness Service: Hospitalist Consult date: 07/12/18 Requesting Physician: Tony Almaguer Reason for Consult: Medical management Primary Care Provider: UNKNOWN Chief Complaint: Abdominal cramping History of Present Illness: This is a 52-year-old female with a past medical history significant for depression, anxiety, thyroid disorder and CHF who presented voluntarily for psychiatric evaluation secondary to suicidal thoughts. Patient has since been admitted to the inpatient psychiatry unit and hospitalist services have been consulted for medical management specifically evaluation of left upper quadrant cramping. Patient seen and examined. Patient states that she has had intermittent left upper quadrant cramping that she describes as a "charley horse " for the past month. Patient states that the episodes have been increasing in frequency. She states the episodes seem to be brought on when bearing down to defecate but also can occur without any specific activity. She reports history of constipation but states that she had a bowel movement this morning. Any black/bloody/tarry stools. She denies any associated fever or chills. She denies any associated chest pain or shortness of breath. She denies any nausea or vomiting. She denies any urinary difficulties. Patient states that the episodes will last for a few minutes before subsiding on their own. She denies any history of abdominal surgery. She has never had an EGD or colonoscopy. Review of Systems All other systems reviewed negative except as stated in [facility] - History History Provided By: Patient - Medical History Medical History: Medical History (Last Updated 07/12/18 @ 15:13 by Le Murcia) Anxiety (Acute) Depression (Acute) CHF (congestive heart failure) (Acute) Chest pain Post hysterectomy menopause Thyroid disorder - Surgical History Surgical History: Surgical History (Last Updated 07/12/18 @ 15:07 by Le Murcia) History of appendectomy (Acute) - Family History Family History: Family History (Last Updated 07/12/18 @ 15:07 by Le Murcia) Other Diabetes mellitus - Tobacco History Second Hand Smoke Exposure: Yes Tobacco Use In Past 30 Days: Yes Smoking Status: Current every day smoker Tobacco Type: Cigarettes - Alcohol History How Often Do You Have a Drink Containing Alcohol: Never - Substance Use History Substance History: No History of Abuse - Immunization History Tetanus Immunization: >5 Years Hx Influenza Vaccine This Season: Yes Medications and Allergies Active Medications: Active Medications Acetaminophen (Tylenol) 650 mg PO Q4H PRN PRN Reason: Pain 1-5 or Temp >101F Last Admin: 07/12/18 06:23 Dose: 650 mg Al Hydrox/Mg Hydrox/Simethicone (Mag-Al Plus Susp Liq) 30 ml PO Q6H PRN PRN Reason: DYSPEPSIA Al Hydroxide/Mg Hydroxide (Milk Of Magnesia Liq) 30 ml PO Q12H PRN PRN Reason: Mild Constipation Diphenhydramine HCl (Benadryl) 50 mg PO Q6H PRN PRN Reason: ALLERGIES Last Admin: 07/12/18 11:09 Dose: 50 mg Flumazenil (Romazecon Inj) 0.2 mg IV.PUSH Q1M PRN PRN Reason: OVERSEDATION Lorazepam (Ativan) 1 mg PO BID [facility] Last Admin: 07/12/18 11:09 Dose: 1 mg Methimazole (Tapazole) 10 mg PO TID [facility] Last Admin: 07/12/18 14:24 Dose: 10 mg Mirtazapine (Remeron) 15 mg PO [facility] Nicotine (Habitrol 14 Mg Patch.24 Hr) 1 patch T-DERMAL DAILY [facility] Last Admin: 07/12/18 09:42 Dose: Not Given Patch Removal (Remove Old Patch) 1 each T-DERMAL DAILY [facility] Last Admin: 07/12/18 09:42 Dose: Not Given Allergies Allergy/AdvReac Type Severity Reaction Status Date / Time sertraline [From Zoloft] Allergy Severe Hives Verified 07/10/18 12:00 prochlorperazine AdvReac Severe Seizures Verified 07/10/18 12:00 [From Compazine] Home Medications Medication Instructions Recorded Confirmed Type Seroquel 25 mg PO HS 07/10/18 07/10/18 History clonazepam 1 mg PO BID PRN 07/10/18 07/10/18 History methimazole 10 mg PO TID 07/11/18 07/11/18 History Physical Exam Vital signs: Vital Signs 07/11/18 17:00 07/12/18 05:42 07/12/18 10:51 Temperature 98.1 F 97.9 F Pulse Rate 88 80 Respiratory Rate 18 18 Blood Pressure 140/72 134/70 Pulse Oximetry 98 95 Intake & Output 07/11/18 07/12/18 07/12/18 18:59 06:59 18:59 Weight 98.3 kg Other: Weight On Admission 98.3 kg Narrative: GENERAL: Well-developed well-nourished female, not in any acute distress. Awake and alert. Appears comfortable lying in bed. SKIN: Warm and dry. HEAD: Atraumatic. Normocephalic. EYES: Pupils equal and round. No scleral icterus. No injection or drainage. ENT: No nasal bleeding or discharge. Mucous membranes pink and moist. NECK: Trachea midline. CARDIOVASCULAR: Regular rate and rhythm. RESPIRATORY: No accessory muscle use. Clear to auscultation. Breath sounds equal bilaterally. GASTROINTESTINAL: Abdomen soft, nondistended. +tenderness to palpation over LUQ. ?splenomegaly MUSCULOSKELETAL: Extremities without clubbing, cyanosis, or edema. No obvious deformities. NEUROLOGICAL: Awake and alert. No obvious cranial nerve deficits. Motor grossly within normal limits. No focal neurologic finding appreciated. Normal speech. PSYCHIATRIC: Appropriate mood and affect; insight and judgment normal. Assessment and Plan - Plan 52-year-old female with a past medical history significant for depression, anxiety, thyroid disorder and CHF who presented voluntarily for psychiatric evaluation secondary to suicidal thoughts. Patient has since been admitted to the inpatient psychiatry unit and hospitalist services have been consulted for medical management specifically evaluation of left upper quadrant cramping. Depression Anxiety -Management per psychiatric team LUQ abdominal cramping ?sliding hiatal hernia -obtain CT abd/pelvis for further evaluation Thyroid disorder TSH less than 0.005 - patient reports missing 5 days of her methimazole -Continue patient on home dose of methimazole 10 mg p.o. 3 times daily -patient will need to have her thyroid studies rechecked as an outpatient in the next 6 to 8 weeks CHF Patient appears euvolemic -Monitor for any evidence of fluid overload Dyslipidemia LFTs WNL -ASCVD 10yr risk 6.6%, lifetime risk 39% -lifestyle modification -will discuss initiation of statin therapy DVT prophylaxis -Patient is ambulatory Discussed Condition With: patient, nursing staff,
[2018-07-12 15:41] LABS: Hemoglobin A1c 5.4 % (4.3-6.0)
--- NOTE | 2018-07-12 16:12 | CT ---
EXAM DATE: 07/12/2018 4:03 PM EDT AGE/SEX: 52 years / Female INDICATIONS: Epigastric pain and spasms. CLINICAL DATA: This is the patient's initial encounter. Patient reports that signs and symptoms have been present for 1 week and indicates a pain score of 5/10. MEDICAL/SURGICAL HISTORY: Congestive heart failure. Appendectomy. Hysterectomy. ORAL CONTRAST: No oral contrast ingested. RADIATION DOSE: 15.35 CTDI (mGy) COMPARISON: No prior exams available for comparison. TECHNIQUE: Multiple contiguous axial images were obtained through the abdomen and pelvis following b olus infusion of 96 ml Omnipaque 350 (iohexol) nonionic water-soluble contrast as a single exam dos e. No oral contrast ingested. Using automated exposure control and adjustment of the mA and/or kV ac cording to patient size, radiation dose was kept as low as reasonably achievable to obtain optimal di agnostic quality images. DICOM format image data is available electronically for review and comparis on. FINDINGS: LOWER LUNGS: The visualized lower lungs are clear. LIVER: The liver has a homogeneous density without space-occupying lesion. There is no dilation of t he biliary tree. SPLEEN: Homogeneous density without enlargement. PANCREAS: Unremarkable without mass or calcification. KIDNEYS: Kidneys demonstrate symmetrical enhancement and are symmetrical in size without evidence fo r radiopaque renal calculi or hydronephrosis. Bilateral subcentimeter hypodense cystic lesions which are too small to fully characterize. ADRENAL GLANDS: Unremarkable. AORTA: Niru-aneurysmal. BOWEL/MESENTERY: The bowel loops are grossly unremarkable. The cecum and sigmoid colon have a gabo l configuration. No free fluid or drainable fluid collections. ABDOMINAL WALL: Diastasis recti with very small fat-containing periumbilical hernia. RETROPERITONEUM: No evidence of adenopathy in the retrocrural, para-aortic, or deep pelvic regions. BLADDER: Contours are smooth. REPRODUCTIVE: Uterus is surgically absent. BONY STRUCTURES: Degenerative spondylosis of the lumbar spine. No focal lytic or blastic bony lesion s. CONCLUSION: 1. No acute CT abnormality in the abdomen or pelvis. 2. Diastasis recti with very small fat-containing periumbilical hernia. 3. Subcentimeter bilateral hypodense cystic renal lesions which are too small to fully characterize. Electronically signed by: Jose Anne MD 07/12/2018 4:11 PM EDT
[2018-07-12] MEDS ORDERED: Mirtazapine 15 MG Tablet PO SCH (21:00)
[2018-07-13] MEDS: LORazepam 1 MG Tablet PO SCH (08:53)
[2018-07-13] MEDS: Acetaminophen 325 MG Tablet PO PRN (09:05)
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
--- NOTE | 2018-07-13 13:55 | P.PN ---
Subjective Interval history: Follow up on patient with abdominal cramping. Patient seen and examined. No significant change Discussed CT findings with patient. Will try trial of Bentyl. Discussed initiation of statin therapy, patient agreeable. No new medical complaints. Physical Exam Vital signs: Vital Signs 07/12/18 17:00 07/13/18 06:00 Temperature 97.5 F L 97.5 F L Pulse Rate 89 79 Respiratory Rate 18 16 Blood Pressure 130/70 164/94 H Pulse Oximetry 97 Intake & Output 07/12/18 07/13/18 07/13/18 18:59 06:59 18:59 Other: Date of Last Bowel Movement 07/12/18 Narrative: GENERAL: Well-developed well-nourished female, not in any acute distress. Awake and alert. Witnessed ambulating in unit. SKIN: Warm and dry. HEENT: Atraumatic. Normocephalic. Pupils equal and round. No scleral icterus. No injection or drainage. No nasal bleeding or discharge. Mucous membranes pink and moist. NECK: Trachea midline. CARDIOVASCULAR: Regular rate and rhythm. No murmur auscultated. RESPIRATORY: No accessory muscle use. Clear to auscultation. Breath sounds equal bilaterally. GASTROINTESTINAL: Abdomen soft, nondistended. +tenderness to palpation over LUQ. MUSCULOSKELETAL: Extremities without clubbing, cyanosis, or edema. No obvious deformities. NEUROLOGICAL: Awake and alert. No obvious cranial nerve deficits. Motor grossly within normal limits. No focal neurologic finding appreciated. Normal speech. PSYCHIATRIC: Appropriate mood and affect; insight and judgment normal. Results - Labs CBC & Chem 7: 07/10/18 13:35 07/12/18 08:42 Laboratory Results - last 24 hr 07/12/18 08:42 Hemoglobin A1c 5.4 - Imaging Impressions Abdomen/Pelvis CT 07/12/18 00:00 CONCLUSION: 1. No acute CT abnormality in the abdomen or pelvis. 2. Diastasis recti with very small fat-containing periumbilical hernia. 3. Subcentimeter bilateral hypodense cystic renal lesions which are too small to fully characterize. Assessment and Plan - Plan 52-year-old female with a past medical history significant for depression, anxiety, thyroid disorder and CHF who presented voluntarily for psychiatric evaluation secondary to suicidal thoughts. Patient has since been admitted to the inpatient psychiatry unit and hospitalist services have been consulted for medical management specifically evaluation of left upper quadrant cramping. Depression Anxiety -Management per psychiatric team LUQ abdominal cramping CT with no acute findings Reviewed findings with patient -Trial of Bentyl -Follow up with PCP or GI as outpatient if sxs persist or worsen Thyroid disorder TSH less than 0.005 - patient reports missing 5 days of her methimazole -Continue patient on home dose of methimazole 10 mg p.o. 3 times daily -patient will need to have her thyroid studies rechecked as an outpatient in the next 6 to 8 weeks CHF Patient appears euvolemic -Monitor for any evidence of fluid overload Dyslipidemia LFTs WNL -ASCVD 10yr risk 6.6%, lifetime risk 39%. Discussed initiation of statin therapy. Patient agreeable. Begin Lipitor 20mg daily. Patient will need to follow up with PCP as outpatient. -lifestyle modification DVT prophylaxis -Patient is ambulatory Patient is stable from hospitalist standpoint. We will sign off. Please reconsult if needed. Code Status: FULL Discussed Condition With: patient, nursing staff, Dr. Diez, Dr. Almaguer
== END 2018-07-13 14:10 | disposition home or self-care (01) ==
LOC: NEPD 11:16 → NEDA 07-11 09:58 → H260 07-11 14:21
PROVIDERS: ADMIT Psychiatry & Neurology Psychiatry; ATTEND Psychiatry & Neurology Psychiatry